=== PATIENT | female | born 1940 | race Caucasian/White ===

== ENCOUNTER 2022-05-06 20:33 | Inpatient (IN) | payer MEDICARE ==
[~2022-05-06] VITALS: Ht 162.6 cm; Wt 56.7 kg
[~2022-05-06 20:33] MED LIST: DIFLUCAN150 MG PO; NYSTATIN1000000 UN TOP
[2022-05-06 20:57] LABS: HEMOGLOBIN 14.2 gm/dl (12.3-15.3); RED BLOOD COUNT 4.44 M/UL (4.00-5.10)
[2022-05-06 22:06] LABS: BUN/CREATININE RATIO 19 (0-10)
[2022-05-07] MEDS ORDERED: BENADRYL 25MG C25 MG PO (09:10)
[2022-05-07] MEDS ORDERED: METOPROLOL SUCC50 MG PO (09:12)
[2022-05-07 10:51] LABS: BUN/CREATININE RATIO 11 (0-10)
[2022-05-07 14:21] LABS: BUN/CREATININE RATIO 21 (0-10)
[2022-05-07 17:27] LABS: BUN/CREATININE RATIO 15 (0-10)
[2022-05-07 21:39] LABS: BUN/CREATININE RATIO 17 (0-10)
--- NOTE | 2022-05-07 22:36 | NUR ---
pts necklace, rings x2 given to security to lock in the safe #[id number]
[2022-05-07 23:01] LABS: BUN/CREATININE RATIO 16 (0-10)
[2022-05-08 00:19] LABS: BUN/CREATININE RATIO 19 (0-10)
[2022-05-08 01:39] LABS: BUN/CREATININE RATIO 14 (0-10)
[2022-05-08 02:47] LABS: BUN/CREATININE RATIO 17 (0-10)
[2022-05-08 03:47] LABS: BUN/CREATININE RATIO 15 (0-10)
[2022-05-08 04:34] LABS: HEMOGLOBIN 12.7 gm/dl (12.3-15.3); RED BLOOD COUNT 4.09 M/UL (4.00-5.10); WHITE BLOOD COUNT 8.5 K/UL (4.5-11.0)
[2022-05-08 05:05] LABS: BUN/CREATININE RATIO 17 (0-10)
[2022-05-08 05:55] LABS: BUN/CREATININE RATIO 14 (0-10)
[2022-05-08 07:37] LABS: BUN/CREATININE RATIO 15 (0-10)
[2022-05-08 09:44] LABS: BUN/CREATININE RATIO 17 (0-10)
[2022-05-08 12:02] LABS: BUN/CREATININE RATIO 13 (0-10)
[2022-05-08 14:06] LABS: BUN/CREATININE RATIO 14 (0-10)
[2022-05-08 17:10] LABS: BUN/CREATININE RATIO 14 (0-10)
[2022-05-08 21:59] LABS: BUN/CREATININE RATIO 12 (0-10)
[2022-05-09 01:36] LABS: BUN/CREATININE RATIO 15 (0-10)
[2022-05-09 05:18] LABS: HEMOGLOBIN 12.4 gm/dl (12.3-15.3); RED BLOOD COUNT 3.91 M/UL (4.00-5.10); WHITE BLOOD COUNT 8.7 K/UL (4.5-11.0)
[2022-05-09 05:56] LABS: BUN/CREATININE RATIO 17 (0-10)
[2022-05-09 09:09] LABS: BUN/CREATININE RATIO 15 (0-10)
[2022-05-09 13:20] LABS: BUN/CREATININE RATIO 16 (0-10)
[2022-05-09 17:08] LABS: BUN/CREATININE RATIO 12 (0-10)
--- NOTE | 2022-05-09 20:00 | NUR ---
RESTLESS AND AGITATED. REQUESTING ," BEER OR WHISKEY" DISORIENTED X 3 . [facility] FOLLOWED. BED IN LOW POSITION ,BED ALARM ON , CALL [facility] IN [place].
[2022-05-09 21:21] LABS: BUN/CREATININE RATIO 16 (0-10)
[2022-05-10 01:13] LABS: BUN/CREATININE RATIO 13 (0-10)
[2022-05-10 05:03] LABS: HEMOGLOBIN 12.6 gm/dl (12.3-15.3); RED BLOOD COUNT 3.99 M/UL (4.00-5.10); WHITE BLOOD COUNT 7.3 K/UL (4.5-11.0)
[2022-05-10 05:16] LABS: BUN/CREATININE RATIO 12 (0-10)
[2022-05-10 08:33] LABS: BUN/CREATININE RATIO 12 (0-10)
[2022-05-10 12:30] LABS: BUN/CREATININE RATIO 12 (0-10)
[2022-05-10 16:45] LABS: BUN/CREATININE RATIO 12 (0-10)
[2022-05-10 20:32] LABS: BUN/CREATININE RATIO 17 (0-10)
[2022-05-11 04:43] LABS: HEMOGLOBIN 13.1 gm/dl (12.3-15.3); RED BLOOD COUNT 4.11 M/UL (4.00-5.10)
[2022-05-11 04:44] LABS: WHITE BLOOD COUNT 13.3 K/UL (4.5-11.0)
[2022-05-11 05:08] LABS: BUN/CREATININE RATIO 19 (0-10)
--- NOTE | 2022-05-11 13:07 | NUR ---
PATIENT HAS INCREASE WORK OF BREATHING, USE OF ABDOMINAL MUSCLES, STRIDOR AND IS NOW REQUIRING OXYGEN. DR. HOLLEY NOTIFIED AND A STAT ABG AND CHEST XRAY WAS ORDERED VIA TELEPHONE ORDER. HE STATED HE WOULD COME TO THE BEDSIDE AND ASSESS THE PATIENT HIMSELF.
[2022-05-11 16:52] LABS: BUN/CREATININE RATIO 24 (0-10)
[2022-05-12 05:29] LABS: HEMOGLOBIN 13.5 gm/dl (12.3-15.3); RED BLOOD COUNT 4.24 M/UL (4.00-5.10)
[2022-05-12 09:00] LABS: BUN/CREATININE RATIO 27 (0-10)
[2022-05-13 02:28] LABS: HEMOGLOBIN 13.6 gm/dl (12.3-15.3); RED BLOOD COUNT 4.29 M/UL (4.00-5.10); WHITE BLOOD COUNT 12.7 K/UL (4.5-11.0)
[2022-05-13 03:21] LABS: BUN/CREATININE RATIO 31 (0-10)
[2022-05-14 05:10] LABS: BUN/CREATININE RATIO 31 (0-10)
[2022-05-14 05:25] LABS: HEMOGLOBIN 14.2 gm/dl (12.3-15.3); RED BLOOD COUNT 4.43 M/UL (4.00-5.10); WHITE BLOOD COUNT 14.6 K/UL (4.5-11.0)
[2022-05-15 08:53] LABS: HEMOGLOBIN 14.3 gm/dl (12.3-15.3); RED BLOOD COUNT 4.3 M/UL (4.00-5.10); WHITE BLOOD COUNT 14.4 K/UL (4.5-11.0)
[2022-05-16 01:25] LABS: HEMOGLOBIN 13.8 gm/dl (12.3-15.3); RED BLOOD COUNT 4.35 M/UL (4.00-5.10); WHITE BLOOD COUNT 12.1 K/UL (4.5-11.0)
[2022-05-16 01:53] LABS: BUN/CREATININE RATIO 37 (0-10)
--- NOTE | 2022-05-17 02:59 | NUR ---
NOTIFIED DR. COOL OF BP OF 160/114, HR OF 77BPM AND A MAP OF 134. PATIENT IS VERY UPSET AT THE TIME VITALS WERE OBTAINED. PATIENT WANTED TO GET OUT OF BED AND CHANGE PAJAMAS AND MAKE A POT OF COFFEE. WHEN TRYING TO REASON WITH PATIENT OR REORIENTATE HER SHE BECAME MORE UPSET. WILL CONTINUE TO MONITOR, NO NEW ORDERS AT THIS TIME.
[2022-05-17 03:34] LABS: HEMOGLOBIN 14.3 gm/dl (12.3-15.3); RED BLOOD COUNT 4.39 M/UL (4.00-5.10); WHITE BLOOD COUNT 11.5 K/UL (4.5-11.0)
[2022-05-17 03:59] LABS: BUN/CREATININE RATIO 39 (0-10)
--- NOTE | 2022-05-17 19:30 | NUR ---
Patient uncooperative. Unsteady, confused. camp maintenance supervisor notified. No sitters available at this time
--- NOTE | 2022-05-17 20:00 | NUR ---
Patient still uncooperative. Trying to pinch and punch staff. Medications given to assist with patient's agitation. Will continue to monitor.
--- NOTE | 2022-05-17 21:00 | NUR ---
Patient restless and agitated. States "she is leaving, going to [place] to get some beer." Patient has a history of drinking [employer] beer daily. Will continue to monitor.
[2022-05-18 07:58] LABS: HEMOGLOBIN 15.1 gm/dl (12.3-15.3); RED BLOOD COUNT 4.73 M/UL (4.00-5.10)
[2022-05-18 08:01] LABS: WHITE BLOOD COUNT 14.5 K/UL (4.5-11.0)
[2022-05-18 08:15] LABS: BUN/CREATININE RATIO 35 (0-10)
[2022-05-20] MEDS ORDERED: FOLIC ACID 1 MG1 MG PO (08:51)
[2022-05-20] MEDS ORDERED: ELIQUIS 5 MG TAB5 MG PO (08:51)
[2022-05-20] MEDS ORDERED: MEDROL DOSEPAK 24 MG PO (08:51)
[2022-05-20] MEDS ORDERED: METOPROLOL SUCC50 MG PO (08:51)
[2022-05-20] MEDS ORDERED: THIAMINE HCL100 MG PO (08:51)
[2022-05-20] MEDS ORDERED: AMLODIPINE BESY10 MG PO (08:51)
[2022-05-20] MEDS ORDERED: QUETIAPINE FUMA25 MG PO (08:54)
== END 2022-05-20 13:56 | disposition home or self-care (01) | DRG 871 ==
LOC: ER1 20:33 → CCU 22:56 → M/S 22:56 → CDU 22:56 → CCU 05-07 12:20 → PROG CARE 05-12 17:08 → M/S 05-17 00:02
PROVIDERS: Family Medicine; Internal Medicine; Internal Medicine Nephrology; Internal Medicine Pulmonary Disease; ADMIT Internal Medicine
PROC: 8E0ZXY6 Isolation (ICD-10-PCS; principal; 2022-05-07)
PROC: 3E043XZ Introduction of Vasopressor into Central Vein, Percutaneous Approach (ICD-10-PCS; 2022-05-07)
PROC: B24BZZZ Ultrasonography of Heart with Aorta (ICD-10-PCS; 2022-05-07)
PROC: 3E0333Z Introduction of Anti-inflammatory into Peripheral Vein, Percutaneous Approach (ICD-10-PCS; 2022-05-08)
DX: A41.89 Other specified sepsis (principal); G92.8 Other toxic encephalopathy; U07.1 COVID-19; J12.82 Pneumonia due to coronavirus disease 2019; J96.01 Acute respiratory failure with hypoxia; E87.1 Hypo-osmolality and hyponatremia; I10 Essential (primary) hypertension; E87.6 Hypokalemia; R63.1 Polydipsia; I08.1 Rheumatic disorders of both mitral and tricuspid valves; R45.1 Restlessness and agitation; I48.0 Paroxysmal atrial fibrillation; F10.129 Alcohol abuse with intoxication, unspecified; Z91.14 Patient's other noncompliance with medication regimen; Z79.01 Long term (current) use of anticoagulants; Z87.891 Personal history of nicotine dependence; Z90.710 Acquired absence of both cervix and uterus
CPT/HCPCS: ECHO; 0240U; 36415; 36600; 70450; 70551; 71045; 74018; 80048; 80053; 80202; 80307; 81001; 82140; 82436; 82533; 82550; 82553; 82803; 83605; 83735; 83880; 83930; 83935; 84100; 84133; 84295; 84300; 84439; 84443; 84484; 84550; 85025; 85027; 85610; 86140; 87040; 87081; 87086; 92526; 92610; 93005; 93306; 94640; 94664; 94760; 96374; 96375; 97110; 97110-GP-CQ; 97161; 97167; 97530; 99285; G0480; J0461; J0696; J1100; J1630; J1650; J1940; J2060; J2543; J2597; J2920; J3370; J3411; J3480; J3486; J7030; J7060; J7070; J7131

== ENCOUNTER 2022-05-27 13:05 | Inpatient (IN) | payer MEDICARE ==
[~2022-05-27] VITALS: Ht 162.6 cm; Wt 60.0 kg
[~2022-05-27 13:05] MED LIST changes: +AMLODIPINE BESY10 MG PO; +BENADRYL 25MG C25 MG PO; +ELIQUIS 5 MG TAB5 MG PO; +FOLIC ACID 1 MG1 MG PO; +MEDROL DOSEPAK 24 MG PO; +METOPROLOL SUCC50 MG PO; +QUETIAPINE FUMA25 MG PO; +THIAMINE HCL100 MG PO
[2022-05-27 14:52] LABS: HEMOGLOBIN 14.9 gm/dl (12.3-15.3); RED BLOOD COUNT 4.64 M/UL (4.00-5.10); WHITE BLOOD COUNT 11.6 K/UL (4.5-11.0)
[2022-05-27 16:00] LABS: BUN/CREATININE RATIO 26 (0-10)
[2022-05-28 05:29] LABS: HEMOGLOBIN 14.9 gm/dl (12.3-15.3); RED BLOOD COUNT 4.76 M/UL (4.00-5.10)
[2022-05-28 05:52] LABS: BUN/CREATININE RATIO 23 (0-10)
[2022-05-29 07:19] LABS: HEMOGLOBIN 13.6 gm/dl (12.3-15.3); RED BLOOD COUNT 4.25 M/UL (4.00-5.10); WHITE BLOOD COUNT 10.2 K/UL (4.5-11.0)
[2022-05-29 07:29] LABS: BUN/CREATININE RATIO 28 (0-10)
[2022-05-30 10:58] LABS: BUN/CREATININE RATIO 30 (0-10)
[2022-05-31 04:37] LABS: HEMOGLOBIN 12.3 gm/dl (12.3-15.3); RED BLOOD COUNT 3.88 M/UL (4.00-5.10)
[2022-05-31 04:49] LABS: WHITE BLOOD COUNT 7.1 K/UL (4.5-11.0)
[2022-05-31 04:56] LABS: BUN/CREATININE RATIO 30 (0-10)
[2022-06-01 05:22] LABS: HEMOGLOBIN 12.4 gm/dl (12.3-15.3); RED BLOOD COUNT 3.91 M/UL (4.00-5.10); WHITE BLOOD COUNT 6.2 K/UL (4.5-11.0)
[2022-06-01 06:19] LABS: BUN/CREATININE RATIO 30 (0-10)
[2022-06-02 05:12] LABS: RED BLOOD COUNT 4.15 M/UL (4.00-5.10); WHITE BLOOD COUNT 7.6 K/UL (4.5-11.0)
[2022-06-02 05:32] LABS: BUN/CREATININE RATIO 22 (0-10)
[2022-06-08 17:22] LABS: RED BLOOD COUNT 4.07 M/UL (4.00-5.10); WHITE BLOOD COUNT 6.7 K/UL (4.5-11.0)
[2022-06-08 18:11] LABS: BUN/CREATININE RATIO 21 (0-10)
[2022-06-09 06:17] LABS: HEMOGLOBIN 12.6 gm/dl (12.3-15.3); RED BLOOD COUNT 3.96 M/UL (4.00-5.10); WHITE BLOOD COUNT 6.5 K/UL (4.5-11.0)
[2022-06-09 06:48] LABS: BUN/CREATININE RATIO 23 (0-10)
[2022-06-10 05:14] LABS: HEMOGLOBIN 12.2 gm/dl (12.3-15.3); RED BLOOD COUNT 3.87 M/UL (4.00-5.10); WHITE BLOOD COUNT 6.9 K/UL (4.5-11.0)
[2022-06-10 05:28] LABS: BUN/CREATININE RATIO 28 (0-10)
[2022-06-11 06:40] LABS: HEMOGLOBIN 12.4 gm/dl (12.3-15.3); RED BLOOD COUNT 4.11 M/UL (4.00-5.10); WHITE BLOOD COUNT 6.3 K/UL (4.5-11.0)
[2022-06-11 07:17] LABS: BUN/CREATININE RATIO 19 (0-10)
[2022-06-13 07:47] LABS: HEMOGLOBIN 12.6 gm/dl (12.3-15.3); RED BLOOD COUNT 4.08 M/UL (4.00-5.10); WHITE BLOOD COUNT 6.1 K/UL (4.5-11.0)
[2022-06-13 08:03] LABS: BUN/CREATININE RATIO 20 (0-10)
[2022-06-14 03:44] LABS: HEMOGLOBIN 12.2 gm/dl (12.3-15.3); RED BLOOD COUNT 3.86 M/UL (4.00-5.10)
[2022-06-14 03:55] LABS: BUN/CREATININE RATIO 23 (0-10)
[2022-06-15 06:49] LABS: RED BLOOD COUNT 3.85 M/UL (4.00-5.10); WHITE BLOOD COUNT 7.3 K/UL (4.5-11.0)
[2022-06-15 07:20] LABS: BUN/CREATININE RATIO 18 (0-10)
[2022-06-16 07:21] LABS: HEMOGLOBIN 11.3 gm/dl (12.3-15.3); RED BLOOD COUNT 3.69 M/UL (4.00-5.10)
[2022-06-16 09:32] LABS: BUN/CREATININE RATIO 15 (0-10)
[2022-06-17 07:44] LABS: HEMOGLOBIN 11.7 gm/dl (12.3-15.3); RED BLOOD COUNT 3.81 M/UL (4.00-5.10); WHITE BLOOD COUNT 8.2 K/UL (4.5-11.0)
[2022-06-17 10:58] LABS: BUN/CREATININE RATIO 16 (0-10)
[2022-06-17] MEDS ORDERED: POLYETHYLENE GL17 GM PO (12:57)
[2022-06-17] MEDS ORDERED: QUETIAPINE FUMA25 MG PO ×2 (12:57)
[2022-06-17] MEDS ORDERED: TAB-A-VITE TA400 MC1 PO (12:57)
[2022-06-17] MEDS ORDERED: METOPROLOL SUC100 MG PO (13:00)
== END 2022-06-17 19:20 | DRG 896 ==
LOC: ER1 13:05 → CCU 16:29 → CDU 16:29 → MED SURG 4 16:29 → PROG CARE 21:28 → CCU 05-28 19:50 → PROG CARE 06-02 12:36 → MED SURG 4 06-04 10:35
PROVIDERS: Internal Medicine; Physician Assistant; Preventive Medicine Occupational Medicine; ADMIT Internal Medicine
PROC: 5A0935A Assistance with Respiratory Ventilation, Less than 24 Consecutive Hours, High Flow/Velocity Cannula (ICD-10-PCS; principal; 2022-05-29)
PROC: 5A0935A Assistance with Respiratory Ventilation, Less than 24 Consecutive Hours, High Flow/Velocity Cannula (ICD-10-PCS; 2022-06-04)
DX: F10.139 Alcohol abuse with withdrawal, unspecified (principal); G92.8 Other toxic encephalopathy; Z20.822 Contact with and (suspected) exposure to COVID-19; J96.01 Acute respiratory failure with hypoxia; J69.0 Pneumonitis due to inhalation of food and vomit; E87.1 Hypo-osmolality and hyponatremia; F11.20 Opioid dependence, uncomplicated; E87.3 Alkalosis; I48.20 Chronic atrial fibrillation, unspecified; I47.1 Supraventricular tachycardia; F10.19 Alcohol abuse with unspecified alcohol-induced disorder; E87.6 Hypokalemia; L89.151 Pressure ulcer of sacral region, stage 1; L89.512 Pressure ulcer of right ankle, stage 2; L89.522 Pressure ulcer of left ankle, stage 2; I27.20 Pulmonary hypertension, unspecified; J44.9 Chronic obstructive pulmonary disease, unspecified; F17.210 Nicotine dependence, cigarettes, uncomplicated; E83.51 Hypocalcemia; F03.90 Unspecified dementia, unspecified severity, without behavioral disturbance, psychotic disturbance, mood disturbance, and anxiety; R45.1 Restlessness and agitation; E80.6 Other disorders of bilirubin metabolism; I08.1 Rheumatic disorders of both mitral and tricuspid valves; I10 Essential (primary) hypertension; E83.42 Hypomagnesemia; Z79.01 Long term (current) use of anticoagulants; Z91.14 Patient's other noncompliance with medication regimen; Z90.710 Acquired absence of both cervix and uterus; Z87.01 Personal history of pneumonia (recurrent); Z86.16 Personal history of COVID-19; Z82.49 Family history of ischemic heart disease and other diseases of the circulatory system
CPT/HCPCS: 36415; 36600; 70450; 71045; 73620; 76705; 80048; 80053; 80076; 80307; 81001; 82009; 82140; 82248; 82550; 82553; 82803; 83605; 83690; 83735; 83880; 84132; 84484; 85025; 85027; 85652; 86140; 87040; 87086; 92526; 92610; 93005; 94640; 94664; 94760; 96374; 96376; 97110; 97110-GP-CQ; 97116; 97116-GP-CQ; 97162; 97166; 97530; 97530-GP-CQ; 97535; 99285; A6212; G0480; J1335; J1630; J1940; J3360; J3480; J7030; U0002